=== PATIENT | female | born 1945 | race Caucasian/White ===

== ENCOUNTER 2019-08-03 12:20 | Day surgery (SDC) | payer OTHER ==
[~2019-08-03 12:20] MED LIST: ZOLEDRONIC ACID/MAN/WATER 5 MG/100 ML INFUS..BTL IVPB ONE; diphenhydrAMINE HCL 25 MG CAPSULE (FP) PO ONE
[2019-08-03 13:43] VITALS: PULSE 60; TEMP 97.8
[2019-08-03 14:08] VITALS: BP 138/68
== END 2019-08-03 14:20 | disposition home or self-care (01) ==
LOC: JCHEMO 12:20
PROVIDERS: ATTEND Internal Medicine Endocrinology, Diabetes & Metabolism
PROC: 3E033GC Introduction of Other Therapeutic Substance into Peripheral Vein, Percutaneous Approach (ICD-10-PCS; principal; 2019-08-03)
DX: M81.0 Age-related osteoporosis without current pathological fracture (principal)
CPT/HCPCS: 96365; J3489